=== PATIENT | male | born 1980 | race Caucasian/White ===

== ENCOUNTER 2024-02-09 19:56 | Emergency (ER) | payer BC, SELFPAY ==
[2024-02-09 20:03] VITALS: BP 129/87
--- NOTE | 2024-02-09 20:11 | ED.GENMED ---
History of Present Illness
General
Chief Complaint: Flank Pain
Time Seen by Provider: 02/09/24 20:10
Travel History
Have you had any contact with someone who has COVID-19?: No
Do you have any symptoms of coronavirus? Fever > 100 degrees, chills, cough, shortness of breath, sore throat, loss of taste or smell, muscle aches, or headache?: No
History of Present Illness
History of Present Illness:
HPI: The patient presents with relatively abrupt onset right flank/right abdomen/pain rating into the testicular region. He has never had pain like this before. He could not get comfortable. He has some urinary hesitancy. He had no fevers.
EXAM:
GENERAL: Well appearing but appears somewhat uncomfortable
HEENT: Moist oral mucosa
CARDIOVASCULAR: No murmurs, normal heart rate, regular rhythm, No chest wall tenderness
PULMONARY: No respiratory distress, breath sounds are clear and equal
ABDOMEN: Soft with no peritoneal signs, no tenderness
NEUROLOGIC: Excellent strength all extremities, no coordination deficits
PSYCHIATRIC: Appropriate mental status, normal insight and judgement
EXTREMITIES: Nontender, no edema, moves all extremities equally
SKIN: No rash, no lesions
TIME OF INITIAL ENCOUNTER: 8 PM
NUMBER AND COMPLEXITY OF PROBLEMS ADDRESSED AT THE ENCOUNTER
� Chronic conditions affecting care: Asthma
� Acute Exacerbation and/or Progression of Chronic Illness: This is an acute problem
� Differential Diagnosis includes: Ureteral stone/colic, musculoskeletal back pain, UTI/pyelonephritis, appendicitis very unlikely
AMOUNT AND/OR COMPLEXITY OF DATA TO BE REVIEWED AND ANALYZED
� I performed an independent evaluation of and my interpretation is:
EKG:
CT: CT imaging shows a 2 mm stone likely at the distal right ureter
X-rays:
Laboratory Studies: CBC normal, chemistries couple, blood noted on urinalysis but no clear sign of infection
Other:
� Review of other/old records: I reviewed old records, the patient was here with a right upper extremity fracture in 2019
� Clinical information was obtained by an independent historian: Spoke to at bedside
� Prescriptions/Medications Considered but not given:
� Further testing considered but not performed:
RISK OF COMPLICATIONS AND/OR MORBIDITY OR MORTALITY OF PATIENT MANAGEMENT
� Social determinants of health affecting care: Lives at home
� Discussion with other providers:
� Escalation of care including admission/observation vs risk of discharge considered: Suspected ureteral stone/colic upon arrival was given Toradol. On reassessment at 10:30 PM, after Toradol, fluids, and Zofran given he feels
markedly improved.
Past History
Past History
ED Past Medical History: None
ED Past Surgical History: None
Social History
Tobacco: Non-smoker
Alcohol: None
Drug: None
Employment: Employed
Phy Exam
Physical Exam
Physical Exam:
See HPI
Course
Orders/Labs/Results
Orders:
Orders
02/09/24 20:22
CT Abd/pel Without Iv Or Oral Urgent
Comment:
Reason For Exam: acute R flank pain to testic
0.9% Sodium Chloride 1000 ml [Nss] 1,000 ml IV BOLUS
Ketorolac [Toradol] 15 mg IV NOW STA
Ondansetron Injectable [Zofran] 4 mg IV NOW STA
02/09/24 20:26
Complete Blood Count/With Diff Urgent
Comprehensive Metabolic Panel Urgent
Urinalysis Reflex To Culture Urgent
Date Specimen was Collected: 02/09/24
Time Specimen was Collected: 20:10
Urine Microscopic Reflex Cult Urgent
Abnormal Lab Results
02/09/24
20:26
BUN 23 H mg/dl
(9-20)
Glucose 135 H mg/dl
(70-99)
AST 85 H U/L
(17-59)
Albumin 5.1 H g/dl
(3.5-5.0)
Urine Ketones 1+ A
(Negative)
Ur Occult Blood Reflex 4+ A
(Negative)
Urine Bilirubin 1+ A
(Negative)
Leukocyte Esterase Rfl Trace A
(Negative)
Urine RBC >100 A /HPF
(0-2)
Urine Albumin (Reflex) 1+ A
(Neg - Trace)
02/09/24 20:26
02/09/24 20:26
Vital Signs
Initial and Last Documented VS:
Initial Vital Signs
Temp Pulse Resp BP Pulse Ox
98.2 F 76 20 129/87 100
02/09/24 20:03 02/09/24 20:03 02/09/24 20:03 02/09/24 20:03 02/09/24 20:03
Last Documented Vital Signs
Temp Pulse Resp BP Pulse Ox
98.2 F 76 20 129/87 100
02/09/24 20:03 02/09/24 20:03 02/09/24 20:03 02/09/24 20:03 02/09/24 20:41
*Critical Care Note
Total Time (30-74mins, 75-104mins- exclusive of procedures): Not Applicable
ED Attending Note
-
Portions of this chart may have been created with voice recognition software.� Occasional wrong word or��sound alike� substitutions may have occurred due to the inherent limitations of voice recognition software.
Discharge Plan
Departure
Prescriptions:
No Action
No Current Medications
0
Referrals:
Parvin Hyatt DO [Family Provider] -
Interventions
Interventions:
*Risk Screen - Suicide Last Done: 02/09/24 20:03
*General Assessment Last Done: 02/09/24 20:03
*Neglect/Abuse Screening Last Done: 02/09/24 20:03
ED- Fall Risk Assessment Last Done: 02/09/24 20:03
*ED COVID-19 Vaccine History Last Done: 02/09/24 20:03
EL-Vzcrkc-Afhedngfnj Assessment Last Done: 02/09/24 20:19
ED-Male Genitourinary Assessment Last Done: 02/09/24 20:19
Discharge Date and Time
Print Language: NIUEAN
[2024-02-09 20:18] VITALS: BMI 23.6
[2024-02-09 20:30] VITALS: BP 168/112
[2024-02-09] MEDS: ZOFRAN 4 MG IV (20:33)
[2024-02-09] MEDS: NSS 1000 IV (20:33)
[2024-02-09] MEDS: TORADOL 15 MG IV (20:33)
[2024-02-09 20:36] LABS: Urine Albumin 1+ (Neg - Trace); Urine Bilirubin 1+ (Negative); Urine Character Clear (Clear); Urine Color Yellow; Urine Glucose Negative (Negative); Urine Ketone 1+ (Negative); Urine Leukocyte Trace (Negative); Urine Nitrite Negative (Negative); Urine Occult Blood 4+ (Negative); Urine Urobilinogen Negative (Neg - 1+)
[2024-02-09 20:37] LABS: % Eosinophils 0.8 % (0-6); % Immature Granulocytes 0.1 % (0-0.5); % Lymphocytes 36.9 % (20.5-51.1); % Monocytes 6.8 % (1.7-9.3); % Neutrophils 54.4 % (42.2-75.2); Absolute Basophils 0.1 10^3/uL (0-0.2); Absolute Eosinophils 0.1 10^3/uL (0-0.7); Absolute Lymphocytes 3.1 10^3/uL (1.2-3.4); Absolute Monocytes 0.6 10^3/uL (0.1-0.6); Absolute Neutrophils 4.6 10^3/uL (1.4-6.5); Hematocrit 41.8 % (39.0-52.0); Hemoglobin 15.4 g/dL (13.0-18.0); Mean Corp Hgb Conc. 36.8 g/dL (33.0-37.0); Mean Corpuscular Hgb 30.1 pg (27.0-31.0); Mean Corpuscular Volume 81.8 fL (80.0-94.0); Mean Platelet Volume 10.3 fL (7.4-10.4); Nucleated Red Blood Cells % 0 % (-); Platelet Count 258 10^3/uL (130-400); Red Blood Cell Count 5.11 10^6/uL (4.70-6.10); Red Cell Dist. Width 12.1 % (11.5-14.5); White Blood Cell Count 8.4 10^3/uL (4.8-10.8)
[2024-02-09 20:41] LABS: Urine Red Blood Cell >100 /HPF (0-2); Urine Squamous Cell 0-2 /LPF (Few)
[2024-02-09 20:55] LABS: ALT (SGPT) 50 U/L (0-50); AST (SGOT) 85 U/L (17-59); Albumin 5.1 g/dl (3.5-5.0); Alkaline Phosphatase 64 U/L (38-126); Blood Urea Nitrogen 23 mg/dl (9-20); Calcium 10.2 mg/dl (8.4-10.2); Carbon Dioxide 22 mmol/L (22-30); Chloride 103 mmol/L (98-107); Estimated Creatinine Clearance 70 ml/min; Glucose 135 mg/dl (70-99); Potassium 4.1 mmol/L (3.5-5.1); Sodium 135 mmol/L (135-145); Total Bilirubin 0.7 mg/dl (0.2-1.3); Total Protein 7.9 g/dl (6.3-8.2); eGFR > 60.00
[2024-02-09 21:15] VITALS: BP 108/82
[2024-02-09 22:00] VITALS: BP 112/64
== END 2024-02-09 22:52 | disposition home or self-care (01) ==
LOC: EMR 19:56
PROVIDERS: EMERGENCY PHYSICIAN Emergency Medicine; FAMILY PHYSICIAN Family Medicine
DX: N20.1 Calculus of ureter (principal)
CPT/HCPCS: 99284; 96374; 96375; 96361; 74176; 80053; 81003; 81015; 85025